=== PATIENT | male | born 1960 | race Caucasian/White ===

== ENCOUNTER 2017-01-20 18:38 | Inpatient (IN) | payer BC ==
--- NOTE | ~2017-01-20 | CN ---
Consultation Report [facility] [address] [facility] [place]. [address] NAME: IGOR FERGUSON : 60 STATUS : ADM Jyoti PAT#: [id number] AGE: 56 ADM/REG DATE : 01/20/17 MR#: [id number] REPORT SERV DATE: 01/23/17 DICTATED BY: ELIZABETH PETERSON DATE: 01/22/17 REPORT STATUS : Draft TRANSCRIBED BY: MODL DATE: 01/22/17 CONSULTATION DATE OF CONSULTATION: 01/22/2017 REASON FOR CONSULTATION: Chronic cough. HISTORY OF PRESENT ILLNESS: Mr. Ferguson is a 56-year-old gentleman admitted on 01/20/2017 due to issues with dyspnea. He has had a cardiac workup that was negative and his main complaint now is he has frequent cough, which he describes as a tickle in his throat with some minor phlegm that is coughed up and is clear in character. He describes having an upper respiratory tract infection about a month ago. Was treated with oral antibiotics, but has had persistent issues with cough despite previous treatment. He had a previous chest x- ray, which was negative; echo, which was negative; bilateral lower extremity Dopplers, which were negative. He has no other significant symptoms of seasonal or perennial allergic rhinitis. He does have history of gastroesophageal reflux and he just recently was started back on Protonix. PAST MEDICAL HISTORY: Hypertension and hypercholesterolemia. SOCIAL HISTORY: The patient is as a restauranteur. No tobacco. Occasional alcohol use. No illicit drug use. PHYSICAL EXAMINATION: GENERAL: The patient is awake, alert, and appropriate. HEENT: Both the ears are clear. The nose shows a severely deviated septum to the left. Oral cavity and oropharynx have no visible mucosal lesions. NECK: Supple. No adenopathy, no masses, no thyromegaly. Cranial nerves 2 through 12 are grossly intact. Flexible nasal endoscopy again shows a septal deviation to the left as previously mentioned. The inferior middle meatus shows no evidence of polypoid disease. No purulent drainage. The nasopharynx is clear. Oropharynx is clear. Hypopharynx, larynx, true vocal cords are mobile. There is moderate amount of thick mucus in the glottic larynx as well as [id number] arytenoid pachydermia and erythema. IMPRESSION: Multifactorial cough most likely due to a combination from gastroesophageal reflux disease as well as probable reactive airway disease following recent upper respiratory tract infection. RECOMMENDATIONS: Continue Protonix. Consider trial of prednisone taper 30 mg for five days, 20 mg for five days, 10 mg for five days. We will follow up and recheck in my office in two to three weeks. Consultation Report [facility] [address] [place]. [address] NAME: IGOR FERGUSON : 60 STATUS : ADM Jyoti PAT#: [id number] AGE: 56 ADM/REG DATE : 01/20/17 MR#: [id number] REPORT SERV DATE: 01/23/17 DICTATED BY: ELIZABETH PETERSON DATE: 01/22/17 REPORT STATUS : Draft TRANSCRIBED BY: HERMILO DATE: 01/22/17 PASTOR/HERMILO Elziabeth Peterson M.D. / [id number] CC: Amadou Tellez
--- NOTE | ~2017-01-20 | HP ---
History And Physical [place] [id number] [place]. [address] NAME: IGOR FERGUSON : 60 STATUS : ADM Jyoti PAT#: [id number] AGE: 56 ADM/REG DATE : 01/20/17 MR#: [id number] REPORT SERV DATE: 01/21/17 DICTATED BY: ALISHA WONG DATE: 01/20/17 REPORT STATUS : Draft TRANSCRIBED BY: MODL DATE: 01/20/17 DATE OF ADMISSION: 01/20/2017 CHIEF COMPLAINT: A 56-year-old male presenting with shortness of breath and dizziness. HISTORY OF PRESENTING ILLNESS: The patient's history was obtained through careful interview with the patient and brother. The patient about a month ago developed "the flu" and he states he just never really got rid of a cough. He has had "heavy breathing" over the last month, but over the last few days he describes extreme dyspnea on exertion. He has developed cold sweats and on 01/18/2017 began to have lightheadedness as well with near syncopal events. He describes diaphoresis, but no overt fevers or chills. Earlier this weekend the patient went to the emergency department at [place] and was told he had tachycardia, premature ventricular contractions, and hypokalemia. He was provided supportive care in the emergency department and felt to be stable enough to return back home. Then on the day of this admission 01/20/2017 he went to see his primary care physician and was scheduled for a nuclear cardiac stress test. Unfortunately, this evening his shortness of breath became quite extreme. He felt depleted of energy and again felt as if he might pass out so he came here to the hospital for further evaluation. He describes a nonproductive cough now, hoarseness of his voice. He denies any chest pain at all. No chest heaviness. No abdominal pain. No headache. REVIEW OF SYSTEMS: Otherwise, a 14-point review of systems was obtained and was negative. PAST MEDICAL HISTORY: 1. Hypertension. 2. Elevated cholesterol. 3. Hypothyroidism. 4. No cardiac disease. No lung disease. PAST SURGICAL HISTORY: Denies any. ALLERGIES: PENICILLIN. SOCIAL HISTORY: No tobacco abuse. Drinks occasional alcohol. Is . Lives with the son in [place], [place]. 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 History And Physical [address] [place]. [address] NAME: IGOR FERGUSON : 60 STATUS : ADM Jyoti PAT#: [id number] AGE: 56 ADM/REG DATE : 01/20/17 MR#: [id number] REPORT SERV DATE: 01/21/17 DICTATED BY: ALISHA WONG DATE: 01/20/17 REPORT STATUS : Draft TRANSCRIBED BY: HERMILO DATE: 01/20/17 FAMILY HISTORY: Coronary artery disease. CURRENT MEDICATIONS: Include aspirin 81 mg daily, Coreg 6.25 mg p.o. b.i.d., fenofibrate 145 mg p.o. daily, Lopid 600 mg p.o. b.i.d., levothyroxine 88 mcg p.o. daily, lisinopril 20 mg p.o. daily, lisinopril/hydrochlorothiazide 20/25 p.o. daily, and Zocor 20 mg daily. PHYSICAL EXAMINATION: VITAL SIGNS: Temperature 97.3, pulse 91, blood pressure 136/66, respiratory rate 14, O2 saturation 95% on room air. GENERAL: Pleasant, cooperative male. No evidence of acute distress. HEENT: Pupils equal, round, and reactive to light. No conjunctival pallor. No scleral icterus. Nares are patent. Oropharynx is clear of obstruction. Very dry mucous membranes. NECK: Trachea midline. No thyromegaly. LYMPH: No cervical lymphadenopathy. No supraclavicular lymphadenopathy. RESPIRATORY: Clear to auscultation at bases. No wheezes, rales, or rhonchi. Normal respiratory effort. CARDIOVASCULAR: Regular rate and rhythm. No murmurs, rubs, or gallops. No current extremity edema is appreciated. ABDOMEN: Soft, nontender, nondistended. Normal bowel sounds auscultated throughout. No hepatosplenomegaly. DERMATOLOGICAL: Warm and dry extremities. No pallor. No cyanosis. PSYCHIATRIC: Normal affect. Good mood. Alert and oriented x3. LABORATORY DATA: Troponin negative. Brain natriuretic peptide 2, INR 1.0. White blood cell count 11.5, hemoglobin 16, hematocrit 45, platelets 271. Sodium 131, potassium 3.7, chloride 97, bicarb 23, BUN 29, creatinine 1.62, glucose 116. STUDIES: 1. Chest x-ray reported as showing no acute cardiovascular process. 2. EKG by my own evaluation shows sinus rhythm, no major abnormalities. ASSESSMENT AND PLAN: 1. Dyspnea evaluation. Check a stress test. Check telemetry. Check pulmonary function test. Negative exam though. Negative chest x-ray. 2. Acute kidney injury. Placed on IV fluids. Discontinue hydrochlorothiazide. Check orthostatics. 3. Leukocytosis. Check procalcitonin. Check ESR. Check CRP. KPL/MODL Alisha Wong M.D. / [id number] History And Physical [address] [address] NAME: IGOR FERGUSON : 60 STATUS : ADM Jyoti PAT#: [id number] AGE: 56 ADM/REG DATE : 01/20/17 MR#: [id number] REPORT SERV DATE: 01/21/17 DICTATED BY: ALISHA WONG DATE: 01/20/17 REPORT STATUS : Draft TRANSCRIBED BY: HERMILO DATE: 01/20/17 CC: Amadou Betnley MATTHEW J. Lisa Gail Carkner, M.D.
--- NOTE | ~2017-01-20 | CN ---
Consultation Report [facility] [address] [place]. [address] NAME: IGOR FERGUSON : 60 STATUS : ADM Jyoti PAT#: [id number] AGE: 56 ADM/REG DATE : 01/20/17 MR#: [id number] REPORT SERV DATE: 01/21/17 DICTATED BY: JAMI AGUILAR DATE: 01/21/17 REPORT STATUS : Draft TRANSCRIBED BY: MODL DATE: 01/21/17 CARDIOLOGY CONSULTATION NOTE DATE OF CONSULTATION: 01/21/2017 REASON FOR CONSULTATION: Cough, dyspnea, PVCs, and dizziness/near-syncope in a 56-year-old man with multiple cardiovascular risk factors. HISTORY OF PRESENT ILLNESS: Mr. Ferguson is a pleasant 56-year-old man with no previous cardiovascular history. The patient was apparently in his usual state of health until about four to five weeks prior to presentation. The patient reports he developed "flu." His presenting symptoms were characterized by cough, dyspnea, and sore throat. The patient denies any myalgias. He did have subjective fevers. He presented to the Emergency Room. The patient reports he tested positive for influenza B. He was also treated with azithromycin at that time. The patient reports his symptoms never entirely resolved. He has had ongoing diaphoresis and lightheadedness. The symptoms are paroxysmal. He also has had a mild flushing sensation associated with this. The patient; however, denies any diarrhea. He denies any nausea or vomiting. The patient has had considerable exertional dyspnea. He reports he becomes dyspneic with minimal activity such as doing chores outside or even walking around the house. He denies orthopnea or paroxysmal nocturnal dyspnea however. The patient denies any significant chest pain whatsoever. More recently, he presented to the Emergency Room in [place], where he was found to be extremely hypertensive with a blood pressure of approximately 230/140 mmHg. The patient was given a prescription for carvedilol at that time. He reports he was also noted to have premature ventricular complexes on the data technical lead while he was in the emergency room. Myocardial infarction was excluded at that time. The patient was eventually discharged to home. He reports that he has not had a noninvasive workup for myocardial ischemia. The patient reports that he continues to have a cough which is occasionally productive of a yellowish sputum. Due to persistent cough, dizziness, and diaphoresis, the patient has presented to [facility] for further workup. He was admitted when he was found to have renal insufficiency in the emergency room and for completion of a cardiovascular workup. PAST MEDICAL HISTORY: 1. Hypertension. 2. Dyslipidemia. 3. Hypothyroidism. PAST SURGICAL HISTORY: The patient reports he has had a back procedure for a "herniated disk" approximately 15 years ago. He denies any other surgeries. FAMILY HISTORY: Family history is positive for early coronary heart disease: The patient's brother underwent coronary artery bypass grafting surgery at age 52. His mother underwent coronary artery bypass grafting surgery in her 70s, after originally being diagnosed with coronary heart disease at age 65. The patient's father also underwent coronary artery Consultation Report [address] [place]. [address] NAME: IGOR FERGUSON : 60 STATUS : ADM Jyoti PAT#: [id number] AGE: 56 ADM/REG DATE : 01/20/17 MR#: [id number] REPORT SERV DATE: 01/21/17 DICTATED BY: JAMI AGUILAR DATE: 01/21/17 REPORT STATUS : Draft TRANSCRIBED BY: HERMILO DATE: 01/21/17 bypass grafting surgery in his 70s. Family history is negative for sudden cardiac . SOCIAL HISTORY: The patient denies any significant history of tobacco use. He drinks approximately three glasses of wine per day. He denies recreational drug use. ALLERGIES: THE PATIENT REPORTS AN ALLERGY TO PENICILLIN. HE DENIES ANY OTHER MEDICATION ALLERGIES. HOME MEDICATIONS: 1. Aspirin 81 mg p.o. daily. 2. Carvedilol 6.25 mg p.o. twice daily. 3. Fenofibrate 145 mg p.o. daily. 4. Gemfibrozil 600 mg p.o. twice daily. 5. Levothyroxine 88 mcg p.o. daily. 6. Lisinopril 20 mg p.o. daily. 7. Lisinopril/hydrochlorothiazide 20/25 mg p.o. daily. 8. Zocor 20 mg p.o. q.h.s. REVIEW OF SYSTEMS: A complete 12-system review was performed. This is noncontributory except for the pertinent positives and negatives noted in the history of present illness above. PHYSICAL EXAMINATION: VITAL SIGNS: Current temperature is 96.9 degrees Fahrenheit. T-max is 97.5 degrees Fahrenheit, blood pressure is 108/65 mmHg, heart rate is 70 beats per minute and regular, respirations 14, and oxygen saturation is 96% on room air. CONSTITUTIONAL: The patient is a morbidly obese white man, in no acute distress. HEAD, EARS, NOSE, AND THROAT: Normal cranium, atraumatic with moist mucous membranes and grossly normal hard and soft palate. Of note, the patient's scan of the head, upper extremities, and upper chest appears flushed/erythematous. The patient reports he has noted this change and that it tends to come and go. NECK: Supple with no obvious thyromegaly or lymphadenopathy CARDIOVASCULAR: There is a regular rhythm with a normal S1 and a physiologically split second heart sound. No significant murmurs, rubs, or gallops are noted. The jugular venous pressure is normal at less than 7 cm. PULMONARY: Clear to auscultation bilaterally with no wheezing, rales, rhonchi, or dullness to percussion. ABDOMINAL: Soft, non-tender, non-distended with no hepatosplenomegaly noted. EXTREMITIES: There is no significant clubbing, cyanosis, or edema. MUSCULOSKELETAL: Grossly normal strength and range of motion in all extremities INTEGUMENTARY: Skin appears intact with no bruises, wounds or active lesions noted NEURO/PSYCH: Alert and oriented x3, with no dysarthria, facial droop or lateralizing weakness noted. Consultation Report [address] [place]. [address] NAME: IGOR FERGUSON : 60 STATUS : ADM Jyoti [facility]#: [id number] AGE: 56 ADM/REG DATE : 01/20/17 MR#: [id number] REPORT SERV DATE: 01/21/17 DICTATED BY: JAMI AGUILAR DATE: 01/21/17 REPORT STATUS : Draft TRANSCRIBED BY: MODL DATE: 01/21/17 DIAGNOSTIC DATA: 12-lead EKG: The patient's 12-lead EKG shows normal sinus rhythm with no significant abnormality. CHEST X-RAY: The PA and lateral chest x-ray is normal with no acute cardiopulmonary process identified. LABORATORY DATA: The chemistry profile on admission shows a sodium of 141, potassium 3.7, chloride is 97, CO2 of 23, BUN 29, and creatinine is 1.62. Estimated GFR of 47, glucose 116. Troponin I is less than 0.02. Magnesium is 2.4. CBC shows a white blood cell count of 8.2, hemoglobin 14.7, hematocrit 42, and platelets 192. Sedimentation rate is normal at 2. PTT is 29, INR is 1.1. Troponin I is normal at less than 0.02. A B-type natriuretic peptide is normal at 2.3. TSH is normal at 2.96. Telemetry: The patient has had no significant cardiac dysrhythmias noted on telemetry. ASSESSMENT AND PLAN: 1. Cough, dyspnea, and dizziness: At this time, the patient has no physical exam evidence of congestive heart failure. His EKG is normal, and myocardial infarction has been ruled out. The patient does; however, have multiple cardiovascular risk factors. I feel it is reasonable to proceed with a noninvasive workup for myocardial ischemia. The patient unfortunately is unable to exercise due to a history of ACL tears. He is; however, able to perform a walking Lexiscan. This will be performed if possible. I will also request a transthoracic echocardiogram to exclude the possibility of cardiomyopathy, though the patient has a normal BNP and no physical exam evidence of congestive heart failure at this time. We will make further recommendations depending on the results of above. 2. Extreme hypertension and flushing: The patient denies any diarrhea or other symptoms of carcinoid. However, given the patient's labile blood pressure as well as his flushing and other unusual symptoms, a 24 hour urine collection for 5-HIAA, VMA, metanephrines, and catecholamines will be performed to evaluate for secondary hypertension. 3. Hyponatremia/renal insufficiency: Possibly due to hydrochlorothiazide in the setting of decreased p.o. intake. The patient's creatinine is somewhat improved this morning. I have recommended that lisinopril be withheld until the patient's creatinine has normalized. The Cardiology Service will continue to follow the patient during this admission. Thank you for allowing me to participate in the care of Mr. Ferguson. JULIETA/HERMILO Jami Aguilar MD Consultation Report [facility] [address] [place]. [address] NAME: IGOR FERGUSON : 60 STATUS : ADM Jyoti PAT#: [id number] AGE: 56 ADM/REG DATE : 01/20/17 MR#: [id number] REPORT SERV DATE: 01/21/17 DICTATED BY: JAMI AGUILAR DATE: 01/21/17 REPORT STATUS : Draft TRANSCRIBED BY: MODL DATE: 01/21/17 / [id number] CC: Amadou Bentley
--- NOTE | ~2017-01-20 | DS ---
Discharge Summary [facility] [address] [facility] [place]. [address] NAME: IGOR FERGUSON : 60 STATUS : DIS IN PAT#: [id number] AGE: 56 ADM/REG DATE : 01/20/17 MR#: [id number] REPORT SERV DATE: 01/24/17 DICTATED BY: DATE: REPORT STATUS : Draft TRANSCRIBED BY: MODL DATE: 01/23/17 ADMISSION DATE: 01/20/2017 DISCHARGE DATE: 01/23/2017 The patient was admitted to the [facility]. CONSULTANTS: Included Dr. Jamil Clancy of Cardiology and Dr. Luis Katz of Ear, Nose, and Throat. DISCHARGE DIAGNOSES: 1. Presyncope - suspect due to hypotension. 2. Recent history of labile blood pressures. 3. Recently diagnosed premature ventricular contractions. 4. Dyspnea on exertion. 5. Cough x1 month - since diagnosed with influenza one month ago. 6. Gastroesophageal reflux disease - re-initiated on PPI. 7. Possible allergic rhinitis and postnasal drip - started on antihistamine. 8. Hypertension - with hypotension as above. 9. Hyperlipidemia. 10.Hypothyroidism - normal thyroid function tests. 11.Acute kidney injury - resolved, due to dehydration and medications. IMAGING AND DIAGNOSTICS: 1. PA lateral chest x-ray 01/20/2017, no acute cardiopulmonary process. 2. Bilateral lower extremity venous Doppler ultrasound 01/21/2017, negative for DVT. 3. Nuclear medicine treadmill stress test 01/21/2017, low probability for ischemic disease. 4. Portable chest x-ray 01/21/2017, mild bibasilar atelectasis. 5. Chest CT 01/21/2017, unremarkable noncontrast CT. No thoracic adenopathy or active pulmonary disease. Moderate coronary artery calcification. 6. Echocardiogram 01/21/2017, normal left ventricular systolic and diastolic function. Normal right ventricular systolic function. No significant valvular disease. 7. Bedside nasopharyngeal scope by Ear, Nose, and Throat showing changes consistent with gastroesophageal reflux disease. PERTINENT LABS: At admission, sodium 131 with creatinine 1.6. Troponin times multiple were negative. TSH 2.96. BNP 2.3. Procalcitonin negative. Liver enzymes normal. TSH 2.26. Sedimentation rate and C-reactive protein negative. White blood cell count normal. Coagulation studies normal. D-dimer negative. Strep screen negative. Viral throat culture pending at the time of discharge. Urine catecholamines pending at the time of discharge. BRIEF HISTORY: For full details, please see the previously dictated history of present illness by Kit Wong. This is a 56-year-old white male, presenting with shortness of breath and dizziness. The patient reports that a month ago he had "the flu" and was treated with Tamiflu and azithromycin. Despite that, he has had "heavy breathing" over the last month, with progressive exertional dyspnea. He "felt like I was going to " in the days Discharge Summary [address] [address] NAME: IGOR FERGUSON : 60 STATUS : DIS IN PAT#: [id number] AGE: 56 ADM/REG DATE : 01/20/17 MR#: [id number] REPORT SERV DATE: 01/24/17 DICTATED BY: DATE: REPORT STATUS : Draft TRANSCRIBED BY: MODRima DATE: 01/23/17 preceding admission. 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 He was evaluated at the emergency department at [facility] and told that he had mild tachycardia with heart rate of 110, premature ventricular contractions, and hypokalemia. He was given fluids and discharged with a prescription for carvedilol. He followed up with his primary care provider on 01/20/2017 and was scheduled for an outpatient nuclear cardiac stress test. On the afternoon of the , he again felt depleted of energy as if he might pass out, so he came to the hospital for further evaluation. Other complaints included a chronic barking cough for at least the past month and possibly longer, as well as some dysphonia and hoarseness of voice, worse in the evenings. He was admitted to the hospitalist service in observation status. HOSPITAL COURSE: The patient was admitted for an evaluation of the dyspnea. A nuclear medicine treadmill stress test was ordered as well as two-view chest x-ray, procalcitonin, sedimentation rate, CRP from the emergency department. Cardiology consultation was also requested. Dr. Clancy saw the patient on the morning of the and agreed with the stress test, also ordered an echocardiogram and 24-hour urine studies to evaluate for carcinoid syndrome. The patient's lisinopril/HCTZ was held from the emergency department given hypotension and acute kidney injury. The patient was given IV fluids and both of these improved. The patient's stress test and echocardiogram were normal, but the patient continued to feel anxious that his symptoms would recur, and that there was not an explanation for his chronic cough. Differential diagnosis of chronic cough was reviewed with him extensively, and additional diagnostics were obtained at that point. The patient's D-dimer was negative and bilateral lower extremity venous Doppler ultrasounds were negative. The patient was felt to be low pretest probability for pulmonary embolism, but did have a noncontrast CT of the chest, which was normal. He had no evidence of COPD or asthma by pulmonary function testing. His lungs were clear throughout his hospitalization and he required no supplemental oxygen. He did endorse some gastroesophageal reflux and this was treated by re initiating a proton pump inhibitor - he recently had lapsed in taking this as an outpatient. He also felt that he might have some postnasal drainage and a "tickle in his throat," so was started on an antihistamine. The possibility of Ear, Nose, and Throat evaluation was discussed with him. His lisinopril had been held at admission for possibility of contribution to chronic cough as well as the acute kidney injury and hypotension. The results of all of those tests were normal, but on 01/22/2017, the patient still stated "I feel like I am going to pass out particularly when I am coughing." He endorsed a sore throat that day, but no chest pain and no shortness of breath. He remained anxious about the possibility of discharge without a clear explanation for his cough. Again, the differential diagnosis of chronic cough was reviewed with him, and that day, Ear, Nose, and Throat consultation was requested of Dr. Luis Katz who performed a bedside nasopharyngeal scope and felt that the changes in the posterior pharynx and around the vocal cords were most likely due to untreated gastroesophageal reflux disease. He also felt there may be a lingering post infectious component and recommended ongoing steroid treatment as well as continuation of proton pump inhibitor and antihistamine. Discharge Summary [address] [place]. [address] NAME: IGOR FERGUSON : 60 STATUS : DIS IN PAT#: [id number] AGE: 56 ADM/REG DATE : 01/20/17 MR#: [id number] REPORT SERV DATE: 01/24/17 DICTATED BY: DATE: REPORT STATUS : Draft TRANSCRIBED BY: MODL DATE: 01/23/17 The patient's 24-hour urine studies were completed on the afternoon of 01/22/2017, but our send-out test and results will not be available for four to seven days. On 01/23/2017, the patient reported that his cough was slightly improved. He denied chest pain or any dyspnea with exertion. His vital signs were stable and his creatinine had normalized completely. He was felt appropriate for discharge to home with multiple medication adjustments made here for hypotension and acute kidney injury, as well as noted coronary artery disease on chest imaging. The patient will have followup with cardiology - Dr. Jamil Clancy in four weeks, and with Ear, Nose, and Throat, Dr. Luis Katz, in two to three weeks. He needs to follow up with Dr. Duggan regarding the urine catecholamine results, which should be available somewhere between 01/27/2017 and 01/28/2017. He also may wish to refer the patient for an outpatient sleep apnea evaluation. The plan and medication changes were reviewed in depth with the patient. DISCHARGE DISPOSITION: To home in the care of supportive family with no specific activity or dietary restrictions, and followup appointments as above. DISCHARGE MEDICATIONS: 1. Aspirin 81 mg p.o. daily. 2. Lipitor 40 mg p.o. at bedtime. 3. Carvedilol 6.25 mg p.o. twice a day. 4. TriCor 145 mg p.o. q.a.m. 5. Lopid 600 mg p.o. twice a day. 6. Synthroid 88 mcg p.o. q.a.m. 7. Claritin 10 mg p.o. daily. 8. Protonix 40 mg p.o. q.a.c. breakfast. 9. Prednisone 10 mg tablets - 30 mg p.o. daily for five days, then 20 mg p.o. daily for five days, then 10 mg p.o. daily for five days. 10.Tessalon Perles 100 mg p.o. q.8 hours p.r.n. cough. Medications discontinued include Medrol Dosepak, Prinivil 20 mg p.o. q.a.m., Zestoretic 20/25 mg p.o. q.a.m., and Zocor 20 mg p.o. at bedtime. 40 minutes was spent in completion of the discharge including review with the patient. KACIE/HERMILO Tristin Cabrera M.D. / [id number] Discharge Summary [address] [place] [address] NAME: IGOR FERGUSON : 60 STATUS : DIS IN PAT#: [id number] AGE: 56 ADM/REG DATE : 01/20/17 MR#: [id number] REPORT SERV DATE: 01/24/17 DICTATED BY: DATE: REPORT STATUS : Draft TRANSCRIBED BY: HERMILO DATE: 01/23/17 CC: Amadou Tellez MD Jack Greer, M.D.
[2017-01-20 15:36] LABS: BASOPHILS 0.5 %; BASOPHILS ABSOLUTE 0.06 10/3/uL (0.0-0.16); EOSINOPHILS 1.4 %; EOSINOPHILS ABSOLUTE 0.16 10/3/uL (0.0-0.53); ER CBC TAT 0 Hrs 05 Mins; HEMATOCRIT 44.6 % (40.0-51.0); HEMOGLOBIN 15.7 g/dL (13.6-17.8); IMMATURE GRANULOCYTES 4.4 %; LYMPHOCYTES 18.4 %; LYMPHOCYTES ABSOLUTE 2.11 10/3/uL (0.67-4.30); MEAN CORPUS HGB CONC 35.2 g/dL (32.0-36.0); MEAN CORPUSCULAR HEMOGLOB 32.9 pg (26.0-34.0); MEAN CORPUSCULAR VOLUME 93.5 fL (80-100); MEAN PLATELET VOLUME 10.9 fL (9.2-13.0); MONOCYTES 13.2 %; MONOCYTES ABSOLUTE 1.51 10/3/uL (0.21-1.20); NEUTROPHILS 62.1 %; NEUTROPHILS ABSOLUTE 7.14 10/3/uL (2.02-8.40); PLATELET COUNT 271 10/3/uL (150-400); RBC DISTRIBUTION WIDTH 12.5 % (12.0-16.0); RED CELL COUNT 4.77 10/6/uL (4.7-6.1); WHITE BLOOD CELLS 11.5 10/3/uL (4.5-10.5)
[2017-01-20 15:38] LABS: MANUAL DIFF NO %
[2017-01-20 15:46] LABS: PARTIAL THROMBO TIME 26.4 SEC (22.5-37.2); PROTIME (NOT ORD) 13.2 SEC (12.0-14.5)
[2017-01-20 15:54] LABS: BUN (BLOOD UREA NITROGEN) 29 MG/DL (6-23); CALCIUM, SERUM 9.7 MG/DL (8.5-10.4); CHEST PAIN PROFILE TAT 0 Hrs 23 Mins; CHLORIDE, SERUM 97 MMOL/L (96-112); CO2 (CARBON DIOXIDE) 23 MMOL/L (24-34); CREATININE 1.62 MG/DL (0.70-1.30); GFR AFRICAN AMERICAN 54 ML/MIN (>=60); GFR NON AFRICAN AMERICAN 47 ML/MIN (>=60); GLUCOSE, SERUM 116 MG/DL (60-99); POTASSIUM, SERUM 3.7 MMOL/L (3.5-5.3); SODIUM, SERUM 131 MMOL/L (135-148); TROPONIN I <0.02 NG/ML (<0.05)
[2017-01-20] MEDS ORDERED: COREG6 PO (20:13)
[2017-01-20] MEDS ORDERED: MEDROLPAK4 (20:13)
[2017-01-20] MEDS ORDERED: SYN88 PO (20:14)
[2017-01-20] MEDS ORDERED: LOPID6 PO (20:14)
[2017-01-20] MEDS ORDERED: TRICOR145 PO (20:14)
[2017-01-20] MEDS ORDERED: PRIN20 PO (20:15)
[2017-01-20] MEDS ORDERED: ZOCOR20 PO (20:17)
[2017-01-20] MEDS ORDERED: ZESTORETIC1 TA1 PO (20:17)
[2017-01-20] MEDS ORDERED: ASAB PO (20:17)
[2017-01-21 05:16] LABS: BASOPHILS 0.6 %; BASOPHILS ABSOLUTE 0.05 10/3/uL (0.0-0.16); EOSINOPHILS 2.6 %; EOSINOPHILS ABSOLUTE 0.21 10/3/uL (0.0-0.53); HEMATOCRIT 41.7 % (40.0-51.0); HEMOGLOBIN 14.7 g/dL (13.6-17.8); IMMATURE GRANULOCYTES 4.3 %; IMMATURE GRANULOCYTES ABSOLUTE 0.35 10/3/uL (0.0-0.11); LYMPHOCYTES 31.9 %; LYMPHOCYTES ABSOLUTE 2.62 10/3/uL (0.67-4.30); MANUAL DIFF NO %; MEAN CORPUS HGB CONC 35.3 g/dL (32.0-36.0); MEAN CORPUSCULAR HEMOGLOB 33.4 pg (26.0-34.0); MEAN CORPUSCULAR VOLUME 94.8 fL (80-100); MEAN PLATELET VOLUME 10.9 fL (9.2-13.0); MONOCYTES 12.5 %; MONOCYTES ABSOLUTE 1.03 10/3/uL (0.21-1.20); NEUTROPHILS 48.1 %; NEUTROPHILS ABSOLUTE 3.96 10/3/uL (2.02-8.40); PLATELET COUNT 192 10/3/uL (150-400); RBC DISTRIBUTION WIDTH 12.5 % (12.0-16.0); WHITE BLOOD CELLS 8.2 10/3/uL (4.5-10.5)
[2017-01-21 05:19] LABS: INTERNATIONAL NORMAL RATI 1.1 UNITS (-); PROTIME (NOT ORD) 13.7 SEC (12.0-14.5)
[2017-01-21 05:39] LABS: A/G RATIO 1.3 (0.7-1.9); ALBUMIN 3.7 G/DL (3.5-5.0); ALKALINE PHOSPHATASE 37 U/L (45-117); BUN (BLOOD UREA NITROGEN) 29 MG/DL (6-23); CALCIUM, SERUM 8.8 MG/DL (8.5-10.4); CHLORIDE, SERUM 99 MMOL/L (96-112); CO2 (CARBON DIOXIDE) 23 MMOL/L (24-34); CREATININE 1.47 MG/DL (0.70-1.30); GFR AFRICAN AMERICAN 61 ML/MIN (>=60); GFR NON AFRICAN AMERICAN 53 ML/MIN (>=60); GLOBULIN 2.8 G/DL (2.5-4.1); GLUCOSE, SERUM 107 MG/DL (60-99); POTASSIUM, SERUM 3.6 MMOL/L (3.5-5.3); SGOT(AST) 31 U/L (5-40); SGPT(ALT) 31 U/L (5-65); SODIUM, SERUM 133 MMOL/L (135-148); TOTAL BILIRUBIN 0.7 MG/DL (0-1.2); TOTAL PROTEIN 6.5 G/DL (6.0-8.5); TROPONIN I <0.02 NG/ML (<0.05)
[2017-01-21 05:40] LABS: C-REACTIVE PROTEIN < 2.9 MG/L (<8.0)
[2017-01-21 05:53] LABS: PROCALCITONIN <0.05 ng/mL (<0.5)
[2017-01-21 06:11] LABS: SED RATE 2 MM/HR (0-15)
[2017-01-21 09:50] LABS: D-DIMER QUANTITATIVE < 0.27 ug/mLFEU (< 0.50)
[2017-01-22 05:35] LABS: BASOPHILS ABSOLUTE 0.07 10/3/uL (0.0-0.16); EOSINOPHILS 2.7 %; EOSINOPHILS ABSOLUTE 0.18 10/3/uL (0.0-0.53); HEMATOCRIT 40.2 % (40.0-51.0); HEMOGLOBIN 14.1 g/dL (13.6-17.8); IMMATURE GRANULOCYTES 3.7 %; IMMATURE GRANULOCYTES ABSOLUTE 0.25 10/3/uL (0.0-0.11); LYMPHOCYTES 34.8 %; LYMPHOCYTES ABSOLUTE 2.35 10/3/uL (0.67-4.30); MEAN CORPUS HGB CONC 35.1 g/dL (32.0-36.0); MEAN CORPUSCULAR VOLUME 94.1 fL (80-100); MEAN PLATELET VOLUME 11.2 fL (9.2-13.0); MONOCYTES 14.8 %; PLATELET COUNT 182 10/3/uL (150-400); RBC DISTRIBUTION WIDTH 12.6 % (12.0-16.0); RED CELL COUNT 4.27 10/6/uL (4.7-6.1); WHITE BLOOD CELLS 6.8 10/3/uL (4.5-10.5)
[2017-01-22 05:37] LABS: MANUAL DIFF NO %
[2017-01-22 05:54] LABS: ALBUMIN 3.9 G/DL (3.5-5.0); BUN (BLOOD UREA NITROGEN) 26 MG/DL (6-23); CALCIUM, SERUM 9.3 MG/DL (8.5-10.4); CHLORIDE, SERUM 105 MMOL/L (96-112); CO2 (CARBON DIOXIDE) 22 MMOL/L (24-34); CREATININE 1.05 MG/DL (0.70-1.30); GFR AFRICAN AMERICAN 92 ML/MIN (>=60); GFR NON AFRICAN AMERICAN 79 ML/MIN (>=60); GLUCOSE, SERUM 101 MG/DL (60-99); PHOSPHORUS, SERUM 3.1 MG/DL (2.5-4.5); POTASSIUM, SERUM 3.7 MMOL/L (3.5-5.3); SODIUM, SERUM 138 MMOL/L (135-148)
[2017-01-23] MEDS ORDERED: LIPITOR40 PO (09:54)
[2017-01-23] MEDS ORDERED: CLARIT10 PO (09:55)
[2017-01-23] MEDS ORDERED: PROTONIX PO (09:56)
[2017-01-23] MEDS ORDERED: TESS PO (09:57)
[2017-01-23] MEDS ORDERED: P10 PO (09:58)
[2017-01-24 13:24] LABS: TIME 24 h (()); VOLUME 3600 mL (())
[2017-01-27 20:36] LABS: DOPAMINE [CALC] 259 ug/24h (88-420); EPINEPHRINE [CALC] <18 ug/24h (2-24); NOREPINEPHRINE [CALC] 90 ug/24h (12-86); TOTAL FREE CATECHOLAMINES 108 ug/24h (14-110)
[2017-01-28 19:47] LABS: METANEPHRINE [CALC] 0.166 mg/24h (0.052-0.341); TOTAL METANEPHRINES [CALC] 0.745 mg/24h (0.140-0.785)
== END 2017-01-23 12:14 | disposition home or self-care (01) | DRG 683 ==
LOC: ER 18:38 → 7NO 20:09
PROVIDERS: Emergency Medicine; Hospitalist; Internal Medicine Cardiovascular Disease
PROC: 0CJS8ZZ Inspection of Larynx, Via Natural or Artificial Opening Endoscopic (ICD-10-PCS; principal; 2017-01-22)
DX: N17.9 Acute kidney failure, unspecified (principal); E87.1 Hypo-osmolality and hyponatremia; I10 Essential (primary) hypertension; I49.3 Ventricular premature depolarization; K21.9 Gastro-esophageal reflux disease without esophagitis; E86.0 Dehydration; I25.10 Atherosclerotic heart disease of native coronary artery without angina pectoris; E78.5 Hyperlipidemia, unspecified; E03.9 Hypothyroidism, unspecified; J30.9 Allergic rhinitis, unspecified; R05 Cough; E78.00 Pure hypercholesterolemia, unspecified; Z82.49 Family history of ischemic heart disease and other diseases of the circulatory system; Z88.0 Allergy status to penicillin; Z79.82 Long term (current) use of aspirin
CPT/HCPCS: 71010; 71020; 71250; 78452; 80048; 80053; 80069; 82384; 83497; 83605; 83735; 83835; 83880; 84145; 84443; 84484; 85025; 85379; 85610; 85652; 85730; 86140; 87070; 87252; 87880; 93005; 93017; 93970; 99285; A9270-GY; A9502; C8929; Q9957